=== PATIENT | female | born 1960 | race Caucasian/White ===

== ENCOUNTER 2016-06-22 15:15 | Day surgery (SDC) | payer BC, OTHER ==
[~2016-06-22] VITALS: Ht 160 cm; Wt 97.5 kg
[2016-06-22 16:00] VITALS: BP 128/78
[2016-06-22] MEDS ORDERED: KETOROLAC 30 MG/ML VIAL ONE (16:08)
[2016-06-22] MEDS ORDERED: NS IV 1000 ML 1,000 ML ONE (16:10)
[2016-06-22] MEDS ORDERED: [UNRECOGNIZED DRUG - CODE] PO (16:24)
[2016-06-22] MEDS ORDERED: TAMS0.4C2 PO (16:24)
[2016-06-22] MEDS ORDERED: ONDA4TAB11 PO (16:24)
[2016-06-22] MEDS ORDERED: HYDR-3812 PO (16:24)
[2016-06-22] MEDS ORDERED: CALCIUM PO (16:24)
[2016-06-22] MEDS ORDERED: CNC1KV IJ (16:24)
[2016-06-22] MEDS ORDERED: ESTR42.52 VG (16:24)
[2016-06-22] MEDS ORDERED: LEVO75TA PO (16:24)
[2016-06-22] MEDS ORDERED: MONT10TA24 PO (16:24)
[2016-06-22] MEDS ORDERED: PED1TAB. PO (16:24)
[2016-06-22] MEDS ORDERED: ONDANSETRON 4 MG (ZOFRAN) ORAL DISSOLVE TAB PO PRN (16:45)
[2016-06-22] MEDS ORDERED: CYANOCOBALAMIN INJ 1000 MCG/ML IM SCH (16:45)
[2016-06-22] MEDS ORDERED: RX-HYDROCODONE/APAP 5/325 MG #4 TAB PK PO PRN (16:45)
[2016-06-22] MEDS ORDERED: HYDROcodone/APAP 5 MG/325 MG (LORTAB) TAB PO PRN (17:00)
[2016-06-22 17:25] LABS: MEAN PLATELET VOLUME 10.8 FL (7.4-10.4); RED BLOOD COUNT 4.07 10^6/uL (4.35-5.85); WHITE BLOOD COUNT 9.8 10^3/uL (4.3-11.0)
[2016-06-22 17:42] LABS: ANION GAP 9 MMOL/L (5-14); BLOOD UREA NITROGEN 13 MG/DL (7-18); BUN/CREATININE RATIO 15; CALCIUM 8.9 MG/DL (8.5-10.1); CARBON DIOXIDE 25 MMOL/L (21-32); CHLORIDE 107 MMOL/L (98-107); CREATININE SERUM 0.88 MG/DL (0.60-1.30); GFR ESTIMATED > 60; GLUCOSE 81 MG/DL (70-105); POTASSIUM 3.7 MMOL/L (3.6-5.0); SODIUM 141 MMOL/L (135-145)
[2016-06-22] MEDS ORDERED: ALFUZOSIN HCL 10 MG TAB (UROXATRAL) PO SCH (18:00)
[2016-06-22] MEDS: KETOROLAC 30 MG/ML VIAL IVP PRN (18:29)
[2016-06-22 20:06] VITALS: BP 111/73
[2016-06-22] MEDS ORDERED: TAMSULOSIN 0.4 MG (FLOMAX) CAP PO SCH (21:00)
[2016-06-23] VITALS: BP 94/53
[2016-06-23] MEDS ORDERED: NS IV 1000 ML 1,000 ML ONE (02:09)
[2016-06-23] MEDS: KETOROLAC 30 MG/ML VIAL IVP PRN (02:21)
[2016-06-23 04:00] VITALS: BP 109/72
[2016-06-23] MEDS ORDERED: LEVOTHYROXINE 75 MCG (LEVOTHROID) TABLET PO SCH (06:30)
[2016-06-23] MEDS ORDERED: MULTIVIT W/MINERALS TAB (THERAGRAN M) PO SCH (07:00)
--- NOTE | 2016-06-23 07:06 | Progress Note-Pre Operative ---
Pre-Operative Progress Note H&P Reviewed The H&P was reviewed, patient examined and no changes noted. Date H&P Reviewed: Jun 23, 2016 Time H&P Reviewed: 07:06 Pre-Operative Diagnosis: Lt ureteral stone SONU PAPPAS MD Jun 23, 2016 7:06 am
[2016-06-23 08:00] VITALS: BP 118/73
[2016-06-23] MEDS ORDERED: NS IV 1000 ML 1,000 ML IV SCH (08:00)
--- NOTE | 2016-06-23 08:42 | Diagnostic Imaging Report ---
INDICATION: Abdominal pain Supine and upright abdominal images were obtained. The gallbladder appears to be surgically absent. Bowel gas pattern is normal. There are no pathologic masses seen. There is some calcified phleboliths in the pelvis. IMPRESSION: No acute abnormalities in the abdomen Dictated by: Dictated on workstation # [id number]
[2016-06-23] MEDS ORDERED: CALCIUM CARBONATE 500 MG (TUMS) TAB.CHEW PO SCH (09:00)
[2016-06-23] MEDS ORDERED: CALCIUM PO SCH (09:00)
[2016-06-23] MEDS ORDERED: CYANOCOBALAMIN 500 MCG TAB (VITAMIN B-12) PO SCH (09:00)
[2016-06-23] MEDS ORDERED: MONTELUKAST 10 MG (SINGULAIR) TAB PO SCH (09:00)
[2016-06-23] MEDS ORDERED: [UNRECOGNIZED DRUG - OTHER] PO SCH (09:00)
[2016-06-23] MEDS ORDERED: CYANOCOBALAMIN PO SCH (09:00)
[2016-06-23] MEDS ORDERED: CATHETER FLUSH 10 ML SYR IV PRN (09:45)
[2016-06-23] MEDS ORDERED: ROCURONIUM 50 MG/5 ML (ZEMURON) VIAL IV ONE (10:55)
[2016-06-23] MEDS ORDERED: ONDANSETRON 4 MG/2 ML (SDV) Z0FRAN IV ONE (10:55)
[2016-06-23] MEDS ORDERED: proPOfol 200 MG/20 ML (DIPRIVAN) VIAL IV ONE (10:55)
[2016-06-23] MEDS ORDERED: LACTATED RINGERS 1,000 ML IV ONE (10:55)
[2016-06-23] MEDS ORDERED: fentaNYL INJECTION 100 MCG/2 ML AMP INJ ONE (10:55)
[2016-06-23] MEDS ORDERED: MIDAZOLAM 2 MG/2 ML (VERSED) VIAL INJ ONE (10:55)
[2016-06-23] MEDS ORDERED: ceFAZolin 1,000 MG (ANCEF) VIAL ONE (11:06)
[2016-06-23] MEDS ORDERED: NORMAL SALINE (BAXTER MINI) 50 ML IV ONE (11:07)
[2016-06-23] MEDS ORDERED: cefTRIAXone 1 GM (ROCEPHIN) VIAL ONE (11:10)
[2016-06-23] MEDS ORDERED: cefTRIAXone INJECTION 1,000 MG in NORMAL SALINE (BAXTER MINI) 50 ML IV NR (11:15)
[2016-06-23 12:00] VITALS: BP 113/72
[2016-06-23] MEDS ORDERED: LACTATED RINGERS 1,000 ML IV SCH (12:00)
[2016-06-23] MEDS ORDERED: KETOROLAC 30 MG/ML VIAL IV ONE (12:13)
[2016-06-23] MEDS ORDERED: GLYCOPYRROLATE 0.2 MG/ML (ROBINUL) 2 ML VIAL IJ ONE (12:13)
[2016-06-23] MEDS ORDERED: NEOSTIGMINE (BLOXIVERZ ) 1 MG/1ML 10 ML VIAL IV ONE (12:13)
[2016-06-23] MEDS ORDERED: SEVOFLURANE (ULTANE) 15 ML INHAL SOLN INH ONE (12:14)
--- NOTE | 2016-06-23 12:24 | Progress Note-Post Operative ---
Post-Operative Progess Note Pre-Operative Diagnosis Lt ureteral stone Post-Operative Diagnosis same, vaginal prolapse Post-Op Procedure Note Date of Procedure: Jun 23, 2016 Name of Procedure: cysto, Lt ureteroscopy with stone lithotripsy and basket Anesthesia Type general Specimen(s) collected stone fragment SONU PAPPAS MD Jun 23, 2016 12:23 pm
--- NOTE | 2016-06-23 12:26 | Discharge Inst-Urology ---
Discharge Inst-Urology Discharge Medications New, Converted, or Re-newed RX: RX on Chart Patient Instructions/Follow Up Plan Please make appointment to been seen in office in 2 weeks, in [facility] Please send stone for analysis post seen by patient, has it Increase oral fluids for 48 hours and then as needed. Diet and Activity as tolerated. If questions or concerns contact your physician Or seek help at emergency department. SONU PAPPAS MD Jun 23, 2016 12:26 pm
[2016-06-23] MEDS ORDERED: ONDANSETRON 4 MG/2 ML (SDV) Z0FRAN IV PRN (12:30)
[2016-06-23] MEDS ORDERED: morphine INJ 10 MG/ML 1ML (SYR OR VIAL) IV PRN (12:30)
[2016-06-23 14:45] VITALS: BP 113/72
[2016-06-23] MEDS ORDERED: ESTRADIOL VAGINAL CREAM 42.5 GM (ESTRACE) VG SCH ×2 (16:45→21:00)
--- NOTE | 2016-06-25 12:21 | OPERATIVE REPORT ---
PROCEDURE PHYSICIAN: SONU PAPPAS DATE OF PROCEDURE: 06/23/2016 PREOPERATIVE DIAGNOSIS: Left distal ureteral stone. POSTOPERATIVE DIAGNOSIS: 1. Left distal ureteral stone. 2. Vaginal prolapse. OPERATION PERFORMED: 1. Cystoscopy. 2. Left ureteroscopy with stone lithotripsy and basket SURGEON: Jose. ANESTHESIA: General. COMPLICATIONS: None. PROCEDURE: Under satisfactory general anesthesia, the patient in lithotomy position, the genitalia were prepped and draped in usual sterile fashion. The cystoscope was introduced under vision, noted a good size prolapse cystorectocele type. The bladder was inspected and was essentially normal except a sluggish efflux on the left side. Using the Foroblique lens, I dilated the left ureteral orifice and intramural portion to accommodate a 6.9-Syrian semirigid ureteroscope. I visualized the stone broke it out and grasped the big fragments with a 3.0 Syrian Bennett basket. I went back with ureteroscope all the way to the proximal ureter. There were no further stones or significant fragments. The ureteroscope was removed and great efflux from the left ureter was noted. The cystoscope was introduced in the bladder to empty it. The patient tolerated the procedure and anesthesia well and was sent to recovery room in stable condition. Job ID: [id number] Dictated Date: 06/23/2016 12:28:10 Architecture Consultant Date: 06/25/2016 12:16:03 / edwin
[2016-06-30 15:51] LABS: KIDNEY STONE WEIGHT 13 MG; STONE NUMBER 1
[2016-06-30 15:52] LABS: KIDNEY STONE COMPOSITION SEE FOOTNOTE; KIDNEY STONE DESCRIPTION SEE FOOTNOTE
--- OUTSIDE RECORDS SUMMARY | 2016-07-04 11:04 | XMS REPORT | Continuity of Care Document ---
Author Author [facility] Organization [facility] Address Unknown Phone Unavailable Care Team Providers Care Refractory Technician Name Role Phone NO, LOCAL PHYSICIAN PCP Unavailable Insurance Providers Payer Name Policy Number Subscriber Name Relationship Self Pay Tremayne Pedraza Self / Same As Patient Advance Directives Directive Response Recorded Date/Time Advance Directives No 06/22/16 3:22pm Health Care Power of Commercial Green Building Designer No 06/22/16 3:22pm Organ Donor No 06/22/16 3:22pm Resuscitation Status Full Code 06/22/16 3:22pm Problems No problem information available. Medications Current Home Medications Medication Dose Units Route Directions Days/Qty Instructions Start Date Levothyroxine Sodium 75 Mcg 75 Mcg Oral Daily 06/22/16 Montelukast Sodium 10 Mg 10 Mg Oral Daily 06/22/16 Cyanocobalamin 1,000 Mcg/Ml 1,000 Mcg Injection Monthly 06/22/16 Hydrocodone/Acetaminophen 1 Each 1 Tab Oral Every 4HRS as needed for Pain 06/22/16 Estradiol 42.5 Gm Vaginal Every Sunday, Sunday, And Sunday Pedi Multivit #22/Vit D3/Vit K 1 Each 3 Tab Oral Daily VITAMELTS MULTIVITAMIN 06/22/16 [Calcium Chew Tab] 2 Tab Oral Daily 06/22/16 Cyanocobalamin (Vitamin B-12) 1,500 Mcg 3,000 Mcg Oral Daily TAKES 2 (1 ,500 MCG) TABLETS 06/22/16 Ondansetron 4 Mg 4 Mg Oral Every 8HRS as needed for Nausea/Vomiting 06/22/16 Past Home Medications Medication Directions Ordered Status Tamsulosin Hcl 0.4 Mg Cap.er.24h, 0.4 Mg Oral Bedtime 06/22/16 Discontinued Social History Social History Problem Response Recorded Date/Time Alcohol Use Denies Use 06/22/2016 3:22pm Recreational Drug Use No 06/22/2016 3:22pm Recent Foreign Travel No 06/22/2016 3:20pm Recent Infectious Disease Exposure No 06/22/2016 3:20pm Smoking Status Never a Smoker 06/22/2016 3:22pm Recent Hopitalizations No 06/22/2016 3:22pm Query Response Start Date Stop Date Smoking Status Never a Smoker Hospital Discharge Instructions Patient Instructions Physician Instructions New, Converted, or Re-newed RX: RX on Chart Plan Please make appointment to been seen in office in 2 weeks, in [facility] Please send stone for analysis post seen by patient, has it Increase oral fluids for 48 hours and then as needed. Diet and Activity as tolerated. If questions or concerns contact your physician Or seek help at emergency department. Plan of Care Discharge Date 06/23/16 2:45pm Disposition 01 HOME, SELF-CARE Instructions/Education Provided Cystoscopy (DC) Prescriptions See Medication Section Referrals (Unspecified) - Reason(s) for Referral: FOLLOW UP WITH DR PAPPAS AT [facility] [phone] IN 2 WEEKS -- PLEASE CALL FOR APPOINTMENT Care Plan and Goals See Discharge Instructions Section Functional Status Query Response Date Recorded Patient Orientation Person Place Time Situation Eyes Open Normal For Age June 23, 2016 4:04pm Comprehension Ability Understands Concepts June 22, 2016 3:22pm Allergies, Adverse Reactions, Alerts Allergen Type Severity Reaction Status Last Updated SULFA, LATEX, AND ERYTHROMYCIN Allergy Unknown Active 06/22/16 Immunizations No immunization records. Vital Signs Acute Vital Signs Vital Response Date/Time Temperature (Fahrenheit) 98.1 degrees F (97.6 - 99.5) 06/23/2016 2:45pm Temperature (Calculated Celsius) 35.94857 degrees C (36.4 - 37.5) 06/23/2016 12:00pm Temperature Source Tympanic 06/23/2016 2:45pm Pulse Rate (adult) 61 bpm (60 - 90) 06/23/2016 2:45pm Respiratory Rate 16 bpm (12 - 24) 06/23/2016 2:45pm O2 Sat by Pulse Oximetry 96 % (88 - 100) 06/23/2016 2:45pm Blood Pressure 113/72 mm Hg 06/23/2016 2:45pm Blood Pressure Mean 86 mm Hg 06/23/2016 12:00pm Pain Numeric Pain Scale 0-No Pain 06/23/2016 2:45pm Height (Feet) 5 feet 06/22/2016 3:37pm Height (Inches) 3.00 inches 06/22/2016 3:37pm Height (Calculated Centimeters) 160.088520 cm 06/22/2016 3:37pm Weight (Pounds) 215 pounds 06/22/2016 3:37pm Weight (Ounces) 0.0 oz 06/22/2016 3:37pm Weight (Calculated Grams) 27582.36 gm 06/22/2016 3:37pm Weight (Calculated Kilograms) 97.505252 kilograms 06/22/2016 3:37pm Calculated BMI 38.1 06/22/2016 3:37pm Results Laboratory Results Test Name Result Units Flags Reference Collection Date/Time Result Date/ Time Comments White Blood Count 9.8 10^3/uL 4.3-11.0 06/22/2016 4:52pm 06/22/2016 5: 29pm Red Blood Count 4.07 10^6/uL L 4.35-5.85 06/22/2016 4:52pm 06/22/2016 5: 29pm Hemoglobin 12.1 G/DL 11.5-16.0 06/22/2016 4:52pm 06/22/2016 5:29pm Hematocrit 36 % 35-52 06/22/2016 4:52pm 06/22/2016 5:29pm Mean Corpuscular Volume 88 FL 80-99 06/22/2016 4:52pm 06/22/2016 5: 29pm Mean Corpuscular Hemoglobin 30 PG 25-34 06/22/2016 4:52pm 06/22/2016 5: 29pm Mean Corpuscular Hemoglobin Concent 34 G/DL 32-36 06/22/2016 4:52pm 05/2017 5:29pm Red Cell Distribution Width 13.0 % 10.0-14.5 06/22/2016 4:52pm 2016 5:29pm Platelet Count 307 10^3/uL 130-400 06/22/2016 4:52pm 06/22/2016 5:29pm Mean Platelet Volume 10.8 FL H 7.4-10.4 06/22/2016 4:52pm 06/22/2016 5: 29pm Sodium Level 141 MMOL/L 135-145 06/22/2016 4:52pm 06/22/2016 5:46pm Potassium Level 3.7 MMOL/L 3.6-5.0 06/22/2016 4:52pm 06/22/2016 5:46pm Chloride Level 107 MMOL/L 98-107 06/22/2016 4:52pm 06/22/2016 5:46pm Carbon Dioxide Level 25 MMOL/L 21-32 06/22/2016 4:52pm 06/22/2016 5: 46pm Anion Gap 9 MMOL/L 5-14 06/22/2016 4:52pm 06/22/2016 5:46pm Blood Urea Nitrogen 13 MG/DL 7-18 06/22/2016 4:52pm 06/22/2016 5:46pm Creatinine 0.88 MG/DL 0.60-1.30 06/22/2016 4:52pm 06/22/2016 5:46pm BUN/Creatinine Ratio 15 06/22/2016 4:52pm 06/22/2016 5:46pm Estimat Glomerular Filtration Rate > 60 06/22/2016 4:52pm 2016 5:46pm GFR INTERPRETIVE DATA UNITS FOR ESTIMATED GFR (eGFR): mL/min/1.73 M2 REFERENCE RANGE FOR ESTIMATED GFR (eGFR) eGFR NORMAL eGFR >60 MODERATELY DECREASED eGFR 30-59 SEVERLY DECREASED eGFR 15-29 KIDNEY FAILURE <15 (OR DIALYSIS) Glucose Level 81 MG/DL 70-105 06/22/2016 4:52pm 06/22/2016 5:46pm Calcium Level 8.9 MG/DL 8.5-10.1 06/22/2016 4:52pm 06/22/2016 5:46pm Procedures Procedure Status Date Provider(s) Cystoscopy Completed 06/23/16 SONU PAPPAS MD Encounters Encounter Location Arrival/Admit Date Discharge/Depart Date Attending Provider Discharged Inpatient (obs) [facility] 06/22/16 3:15pm 2:45pm SONU PAPPAS MD Registered Clinic [facility] 06/22/16 8:53am SONU PAPPAS MD
--- OUTSIDE RECORDS SUMMARY | 2016-07-04 11:04 | XMS REPORT | Continuity of Care Document ---
Author Author [facility] Organization [facility] Address Unknown Phone Unavailable Care Team Providers Care Dry Cell Sealer Name Role Phone NO, LOCAL PHYSICIAN PCP Unavailable Insurance Providers Payer Name Policy Number Subscriber Name Relationship Self Pay Tremayne Pedraza Self / Same As Patient Advance Directives Directive Response Recorded Date/Time Advance Directives No 06/22/16 3:22pm Health Care Power of Packaging Coordinator No 06/22/16 3:22pm Organ Donor No 06/22/16 [...] seen in office in 2 weeks, in [facility] Please send stone for analysis post seen [...] Referral: FOLLOW UP WITH DR PAPPAS AT [facility] [phone] IN 2 WEEKS -- PLEASE CALL FOR [...] - 99.5) 06/23/2016 2:45pm Temperature (Calculated Celsius) 35.45129 degrees C (36.4 - 37.5) 06/23/2016 12:00pm [...] 3.00 inches 06/22/2016 3:37pm Height (Calculated Centimeters) 160.673551 cm 06/22/2016 3:37pm Weight (Pounds) 215 pounds 06/22/2016 3:37pm Weight (Ounces) 0.0 oz 06/22/2016 3:37pm Weight (Calculated Grams) 13210.36 gm 06/22/2016 3:37pm Weight (Calculated Kilograms) 97.192039 kilograms 06/22/2016 3:37pm Calculated BMI 38.1 06/22/2016 [...] Date Attending Provider Discharged Inpatient (obs) [facility] 06/22/16 3:15pm 2:45pm SONU PAPPAS MD Registered Clinic [facility] 06/22/16 8:53am OSNU PAPPAS MD
== END 2016-06-23 14:45 | disposition home or self-care (01) ==
LOC: SDC 15:15 → UNDOADMOB 15:15 → 4TH 15:15 → EDSTATUS 06-23 13:00 → UNDODISOB 06-23 14:45 → SDC 06-23 14:45 → EDSTATUS 07-04 13:00
PROVIDERS: ATTEND Urology
DX: N20.1 Calculus of ureter (principal); N81.10 Cystocele, unspecified; E03.9 Hypothyroidism, unspecified; Z79.899 Other long term (current) drug therapy
CPT/HCPCS: 36415; 74020; 80048; 85027; 87081; 88300

== ENCOUNTER → 2016-06-22 | Outpatient (CLI) | payer BC, OTHER ==
[~2016-06-22] VITALS: Ht 160 cm; Wt 97.5 kg
[~2016-06-22] MED LIST: CALCIUM PO; CNC1KV IJ; ESTR42.52 VG; GLYCOPYRROLATE 0.2 MG/ML (ROBINUL) 2 ML VIAL ONE; HYDR-3812 PO; KETOROLAC 30 MG/ML VIAL ONE; LACTATED RINGERS 1,000 ML IV ONE; LEVO75TA PO; MIDAZOLAM 2 MG/2 ML (VERSED) VIAL ONE; MONT10TA24 PO; NEOSTIGMINE (BLOXIVERZ ) 1 MG/1ML 10 ML VIAL ONE; ONDA4TAB11 PO; ONDANSETRON 4 MG/2 ML (SDV) Z0FRAN ONE; PED1TAB. PO; ROCURONIUM 50 MG/5 ML (ZEMURON) VIAL IV ONE; SEVOFLURANE (ULTANE) 15 ML INHAL SOLN ONE; TAMS0.4C2 PO; [UNRECOGNIZED DRUG - CODE] PO; fentaNYL INJECTION 100 MCG/2 ML AMP ONE; proPOfol 200 MG/20 ML (DIPRIVAN) VIAL IV ONE
== END ==
LOC: PREOP 08:53 → UNDOADMOB 15:15 → 4TH 15:15
PROVIDERS: ATTEND Urology
DX: Z01.818 Encounter for other preprocedural examination (principal); N20.1 Calculus of ureter